=== PATIENT | male | born 1995 | race Hispanic/Latino ===

== ENCOUNTER 2023-11-26 21:29 | Emergency (ER) | payer SELFPAY ==
[2023-11-26] MEDS ORDERED: Ketorolac Tromethamine 30 MG (1 mL) VIAL ONE (21:45)
[2023-11-26 22:44] LABS: Bilirubin Neg (Negative); Blood, Urine 10 (Negative); Clarity Cloudy (Clear); Glucose, Urine (Dipstick) Normal (Negative); Ketone, Urine Negative (Negative); Leukocyte 100 (Negative); Nitrite Negative (Negative); Protein, Urine (Dipstick) Negative (Neg-Trace); Urobilinogen Normal mg/dL (Less than 2)
[2023-11-26 22:52] LABS: Bacteria/HPF Rare-Few HPF (None Seen); CAUTI Indications for Culture Dysuria,urgency,freq; RBC/HPF 0-3 HPF (0-3); Squamous Epithelial 0-3 HPF (0-3)
[2023-11-26 22:53] LABS: Urine Culture Reflex No No
[2023-11-26] MEDS ORDERED: cefTRIAXone (ROCEPHIN) 500 MG VIAL ONE (23:38)
[2023-11-26] MEDS ORDERED: Doxycycline 100 MG CAP PO SCH (23:45)
[2023-11-28 19:57] LABS: Chlam.trachomatis by PCR,Urine Not Detected (NotDetected); GC N.gonorrhoeae PCR,UrineVOID Not Detected (NotDetected)
== END 2023-11-27 00:13 | disposition home or self-care (01) ==
LOC: CSHERS 21:29
DX: N45.2 Orchitis (principal); F17.210 Nicotine dependence, cigarettes, uncomplicated
CPT/HCPCS: 76870; 81001; 87491; 87591; 93976; 96372; J0696; J1885